=== PATIENT | male | born 1985 | race Two or more races ===

== ENCOUNTER 2019-02-18 15:54 | Emergency (ER) | payer MEDICAID ==
[~2019-02-18] VITALS: Ht 195.6 cm; Wt 116.0 kg
[2019-02-18] MEDS ORDERED: KETOROLAC 30MG/ML VIAL IV STA (18:56)
[2019-02-18 20:40] VITALS: BP 121/60
== END 2019-02-18 20:50 | disposition home or self-care (01) ==
LOC: ER 16:10
DX: R07.89 Other chest pain (principal)
CPT/HCPCS: 71045; 93005; 96374; 99283; J1885